=== PATIENT | male | born 1965 | race Caucasian/White ===

== ENCOUNTER 2023-05-09 21:24 | Emergency (ER) | payer SELFPAY ==
[2023-05-09] MEDS: Acetaminophen 500 MG Tab PO ONE (22:21)
[2023-05-09 22:49] LABS: APPEARANCE,URINE CLOUDY (CLEAR); BILIRUBIN,URINE NEGATIVE (NEGATIVE); COLOR,URINE YELLOW (YELLOW); GLUCOSE,URINE NEGATIVE (NEGATIVE); KETONES,URINE NEGATIVE (NEGATIVE); LEUKOCYTE ESTERASE,URINE LARGE (NEGATIVE); NITRITE,URINE NEGATIVE (NEGATIVE); OCCULT BLOOD,URINE MODERATE (NEGATIVE); PH,URINE 7.5 (5.0-9.0); PROTEIN,URINE >=300 (NEGATIVE); UROBILINOGEN,URINE 0.2 mg/dL (0.2-1.0)
[2023-05-09 22:57] LABS: RBC,URINE 50-75 /HPF (0-5); WBC,URINE PACKED /HPF (0-5/HPF)
[2023-05-09 22:58] LABS: BACTERIA,URINE MODERATE /HPF (0-FEW/HPF); EPITHELIAL CELLS,URINE RARE /HPF (NOT SEEN); MUCUS,URINE FEW /LPF (NOT SEEN)
[2023-05-09] MEDS: Ciprofloxacin 500 MG Tab PO ONE (23:16)
[2023-05-09] MEDS: Benzocaine/Cetylpyridinium/Menthol Lozenge MUCMEM ONE (23:16)
== END 2023-05-09 23:34 ==
LOC: DL.ED 21:24
DX: N39.0 Urinary tract infection, site not specified (principal); Z79.82 Long term (current) use of aspirin; Z79.4 Long term (current) use of insulin; Z79.84 Long term (current) use of oral hypoglycemic drugs; Z88.0 Allergy status to penicillin; Z88.1 Allergy status to other antibiotic agents
CPT/HCPCS: 81001; 87086; 99284; A9270-GY